=== PATIENT | male | born 1960 | race Hispanic/Latino ===

== ENCOUNTER 2023-02-26 10:14 | Day surgery (SDC) | payer BC ==
[2023-02-25 10:25] VITALS: BMI 26.1
[~2023-02-26 10:14] MED LIST: EPINEPHrine 0.3 MG, Dextrose 50% 3 ML in Ophthalmic Irrigation Solution 500 ML IVP SCH; FENTANYL 50 MCG/ML 1 ML VIAL ONE; Midazolam HCl 2 mg/2 ml Vial ONE
[2023-02-26] MEDS ORDERED: Cyclopentolate 1% Opth Drop 2 ML BOT ONE (10:48)
[2023-02-26] MEDS ORDERED: Phenylephrine 2.5% Ophth Soln 5 ML BOT ONE (10:48)
[2023-02-26] MEDS ORDERED: Triamcinolone 40 MG/ML VIAL ONE (11:46)
[2023-02-26] MEDS ORDERED: Lidocaine 4% PF 5 ML AMP ONE (11:46)
[2023-02-26] MEDS ORDERED: Dextrose 50% Abboject 50 ML SYRINGE ONE (11:46)
[2023-02-26] MEDS ORDERED: CEFAZOLIN 1 GM VIAL ONE (11:46)
[2023-02-26] MEDS ORDERED: Bupivacaine 0.75% 10 ML VIAL ONE (11:46)
[2023-02-26] MEDS ORDERED: Maxitrol 0.1% Opth Oint 3.5 GM TUBE ONE (11:46)
[2023-02-26] MEDS ORDERED: Lidocaine 1% PF 5 ML VIAL ONE (11:46)
[2023-02-26] MEDS ORDERED: PROPOFOL 200 MG/20 ML VIAL ONE (11:46)
== END 2023-02-26 13:31 | disposition home or self-care (01) ==
LOC: SDC 10:14
PROVIDERS: ATTEND Ophthalmology Retina Specialist
PROC: 08T53ZZ Resection of Left Vitreous, Percutaneous Approach (ICD-10-PCS; principal; 2023-02-26)
PROC: 08QF3ZZ Repair Left Retina, Percutaneous Approach (ICD-10-PCS; principal; 2023-02-26)
PROC: 08NF3ZZ Release Left Retina, Percutaneous Approach (ICD-10-PCS; principal; 2023-02-26)
DX: H33.42 Traction detachment of retina, left eye (principal); I12.9 Hypertensive chronic kidney disease with stage 1 through stage 4 chronic kidney disease, or unspecified chronic kidney disease; E11.22 Type 2 diabetes mellitus with diabetic chronic kidney disease; N18.9 Chronic kidney disease, unspecified; D63.1 Anemia in chronic kidney disease; E78.5 Hyperlipidemia, unspecified; I25.10 Atherosclerotic heart disease of native coronary artery without angina pectoris; F17.200 Nicotine dependence, unspecified, uncomplicated; Z85.038 Personal history of other malignant neoplasm of large intestine; Z79.2 Long term (current) use of antibiotics; Z79.4 Long term (current) use of insulin; Z79.82 Long term (current) use of aspirin; Z79.899 Other long term (current) drug therapy; Z95.1 Presence of aortocoronary bypass graft; Z98.41 Cataract extraction status, right eye
CPT/HCPCS: J0171; J0690; J2250; J2704; J3010; J3301; J3490; J7999